=== PATIENT | male | born 1945 | race Caucasian/White ===

== ENCOUNTER 2022-07-09 10:49 | Emergency (ER) | payer OTHER, MEDICARE, BC ==
[~2022-07-09] VITALS: Ht 177.8 cm; Wt 111.1 kg
== END 2022-07-09 14:16 | disposition home or self-care (01) ==
LOC: ED 10:49 → EDBD 10:50 → ED 14:16
DX: S16.1XXA Strain of muscle, fascia and tendon at neck level, initial encounter (principal); S80.02XA Contusion of left knee, initial encounter; M54.9 Dorsalgia, unspecified; W00.0XXA Fall on same level due to ice and snow, initial encounter; M70.42 Prepatellar bursitis, left knee; Z96.641 Presence of right artificial hip joint; Z96.652 Presence of left artificial knee joint
CPT/HCPCS: 36415; 70450; 72125; 72131; 72170; 73560; 80053; 85025; A9270; G0480; J3010